=== PATIENT | female | born 1995 | race Caucasian/White ===

== ENCOUNTER 2020-12-19 22:51 | Emergency (ER) | payer OTHER ==
[2020-12-19 23:50] LABS: HEMOGLOBIN 13.1 gm/dl (12.3-15.3); RED BLOOD COUNT 4.35 M/UL (4.00-5.10); WHITE BLOOD COUNT 6.6 K/UL (4.5-11.0)
[2020-12-20 00:09] LABS: BUN/CREATININE RATIO 14 (0-10)
[2020-12-20] MEDS ORDERED: COLACE 100MG C100 MG PO (01:17)
== END 2020-12-20 01:40 | disposition home or self-care (01) ==
LOC: ER1 22:51
PROVIDERS: Emergency Medicine
DX: K59.00 Constipation, unspecified (principal); K60.2 Anal fissure, unspecified; Z90.710 Acquired absence of both cervix and uterus; Z85.43 Personal history of malignant neoplasm of ovary; F17.210 Nicotine dependence, cigarettes, uncomplicated
CPT/HCPCS: 71045; 80053; 81001; 83690; 85025; 96374; 96375; 99284; J2270; J2405; Q9967

== ENCOUNTER 2021-07-17 21:30 | Emergency (ER) | payer OTHER ==
[~2021-07-17 21:30] MED LIST: COLACE 100MG C100 MG PO
[2021-07-17] MEDS ORDERED: PERCOCET 5-3251 EACH PO (23:26)
[2021-07-17] MEDS ORDERED: ZOFRAN ODT 4 MG4 MG PO (23:33)
== END 2021-07-17 23:50 | disposition home or self-care (01) ==
LOC: ER1 21:30
DX: S62.313A Displaced fracture of base of third metacarpal bone, left hand, initial encounter for closed fracture (principal); S62.635A Displaced fracture of distal phalanx of left ring finger, initial encounter for closed fracture; F17.210 Nicotine dependence, cigarettes, uncomplicated; W22.8XXA Striking against or struck by other objects, initial encounter
CPT/HCPCS: 29125; 73110; 73130; 99283

== ENCOUNTER → 2021-08-20 | Outpatient (CLI) | payer OTHER ==
[~2021-08-20] MED LIST changes: +PERCOCET 5-3251 EACH PO; +ZOFRAN ODT 4 MG4 MG PO
== END ==
LOC: EMI 09:30
DX: Z20.822 Contact with and (suspected) exposure to COVID-19 (principal)
CPT/HCPCS: 70551

== ENCOUNTER → 2021-10-15 | Outpatient (CLI) | payer OTHER | LOC: RAD 09:36 | DX: M54.2 Cervicalgia (principal); G44.89 Other headache syndrome; G43.009 Migraine without aura, not intractable, without status migrainosus | CPT/HCPCS: 72040 ==